=== PATIENT | female | born 1965 | race Caucasian/White ===

== ENCOUNTER 2017-01-19 06:56 | Day surgery (SDC) | payer OTHER ==
[2017-01-19] MEDS ORDERED: PROPOFOL 500 MG/50 ML VIAL IV ONE (08:00)
[2017-01-19] MEDS ORDERED: SALINE FLUSH 10 ML DISP.SYRIN IVF ONE (08:00)
[2017-01-19] MEDS ORDERED: LACTATED RINGERS 1,000 ML IV.SOLN IV ONE (08:00)
--- NOTE | 2017-01-19 13:19 | GI Report ---
REFERRING PHYSICIAN: Dr. Zi Bonner EPIDEMIOLOGY INVESTIGATOR: Maxime Valentin MD PROCEDURE MEDICATION: Propofol as per anesthesia. INDICATIONS: This 51-year-old woman is referred for her first screening colonoscopy. Her stools are sometimes irregular and sometimes she has to take a little stool softener. She denies blood in the stool. She did have a cousin with the 50s with colon cancer. 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 PROCEDURE PERFORMED: Colonoscopy and polypectomy. PROCEDURE: An Olympus video colonoscope was advanced through the rectum. A slightly atonic redundant colon and it took some maneuvering to reach the cecum. The appendiceal orifice and ileocecal valve looked normal. On slow withdrawal, the cecum, ascending colon, and transverse colon with redundancy but no obvious intraluminal lesions noted. The descending colon and sigmoid, again, shows some redundancy. No obvious intraluminal lesions were noted. In the rectum, at about 8 to 10 cm, the patient had a 3 mm flat polyp removed with a cold snare. Retroflexion of the rectum was otherwise normal. Patient tolerated the procedure well. FINDINGS: 1. Rectal polyp, removed. 2. Slightly atonic redundant colon. RECOMMENDATIONS: 1. Increase fiber in the diet. 2. Metamucil or Benefiber or MiraLAX if needed. 3. Consider re-looking at her colon in 5 years pending the pathology of the polyp. 4. She is to follow up with Dr. Bonner. cc: Dr. Zi Bonner [facility]alle
== END 2017-01-19 06:57 ==
LOC: OPSURG 06:56
PROVIDERS: ATTEND Internal Medicine Gastroenterology
DX: Z12.11 Encounter for screening for malignant neoplasm of colon (principal); K62.1 Rectal polyp; K59.8 Other specified functional intestinal disorders; M35.00 Sjogren syndrome, unspecified
CPT/HCPCS: 45385; 88305; J2704; J7120; S1016

== ENCOUNTER 2017-12-22 09:17 | Outpatient (CLI) | payer OTHER ==
[2017-12-22 09:59] LABS: MEAN CORPUSCULAR HEMOGLOBIN 27.1 pg (28.0-34.0); MEAN CORPUSCULAR VOLUME 84.9 fl (80.0-100.0)
[2017-12-22 10:18] LABS: eGFR (African) > 60; eGFR (Non-African) > 60
== END 2017-12-22 09:20 ==
LOC: LAB 09:17
PROVIDERS: ATTEND Family Medicine
DX: Z00.00 Encounter for general adult medical examination without abnormal findings (principal)
CPT/HCPCS: 36415; 80053; 80061; 83036; 85027; 86803